=== PATIENT | male | born 1975 | race Caucasian/White ===

== ENCOUNTER 2016-08-26 07:45 | Emergency (ER) | payer BC ==
--- NOTE | 2016-08-26 08:14 | ED ---
Throat Pain/Nasal Congestion - HPI Summary HPI Summary: 40yo male presents with URI symptoms a few days ago which have been resolving, however he woke up with a diffuse rash this am. Not particularly itchy, but not at all painful. No fever or chills. No changes in soaps/detergents. No changes in food or water source. No recent travel. He does work at the [employer] at [place], but is unaware of any exposures. No known allergies. He generally feels well. He does take lisinopril for HTN, but has for many years without any adverse affect. He also takes ambien for sleep, but this is an unchanged medication. He is not taking any OTC medication. He denies any abdominal pain. Denies any difficulty breathing, swallowing. Denies wheezing, but does have a resolving cough. - History of Current Complaint Chief Complaint: EDRashSkinAbscess Time Seen by Provider: 08/26/16 07:59 - Allergies/Home Medications Allergies/Adverse Reactions: Allergies Allergy/AdvReac Type Severity Reaction Status Date / Time Bee Venom Allergy Unknown Unknown Verified 08/26/16 07:51 Reaction Details Home Medications: Home Medications Lisinopril TAB* [Prinivil TAB 10 MG*] 10 mg PO DAILY 08/26/16 [History Confirmed 08/26/16] PMH/Surg Hx/FS Hx/Imm Hx Cardiovascular History: Reports: Hx Hypercholesterolemia, Hx Hypertension Respiratory History: Reports: Hx Sleep Apnea Neurological History: Reports: Hx Headaches, Other Neuro Impairments/Disorders - neck pressure on & off since 2011 Infectious Disease History: No Infectious Disease History: Denies: Traveled Outside the [place] in Last 30 Days - Family History Known Family History: Positive: Hypertension, Other - mother stroke at 65yo D - Social History Occupation: Employed Full-time - [place] [employer] Alcohol Use: Occasionally Substance Use Type: Reports: None Hx Tobacco Use: No Review of Systems Positive: Cough Positive: Rash All Other Systems Reviewed And Are Negative: Yes Physical Exam - Summary Physical Exam Summary: GENERAL: Well appearing, No acute distress, well nourished. HEENT: Head atraumatic/normocephalic, EOMI/BJ, conjunctiva clear NECK: Supple with normal range of motion during conversation. No lymphadenopathy CARDIAC: RRR without murmur, rub or gallop LUNGS: Clear to auscultation without wheezing, rales or rhonchi. Normal respiratory effort. Breath sounds are symmetrical and equal. ABDOMEN: Abdomen is soft and non-tender. No organomegaly MUSCULOSKELETAL: Moves all extremities well. There is no peripheral edema. SKIN: Warm and dry, skin color reflects adequate perfusion. Diffuse erythematous rash sparing his back, palms, soles. Erythematous, blanchable. Slightly raised with sections of wheels c/w urticaria more prominent along belt line and flexor surfaces. Not violaceous. NEUROLOGICAL: Patient is alert and appropriate. Cranial nerves are grossly intact. PSYCHIATRIC: Appropriate affect. Vital Signs On Initial Exam: Initial Vitals Temp Pulse Resp BP Pulse Ox 97.5 F 89 16 140/99 100 08/26/16 07:46 08/26/16 07:46 08/26/16 07:46 08/26/16 07:46 08/26/16 07:46 Diagnostics - Vital Signs Vital Signs Temp Pulse Resp BP Pulse Ox 08/26/16 07:46 97.5 F 89 16 140/99 100 - Laboratory Lab Statement: Any lab studies that have been ordered have been reviewed, and results considered in the medical decision making process. EENT Course/Dx - Course Assessment/Plan: 40yo male presents with diffuse rash and resolving URI. Patient is without fever. No known exposures to different medications and/or foods. Exam is c/w urticaria, however patient does not have a prominent pruritic component. Discussed with Dr. Lane. Will start patient on antihistimine, but will avoid prednisone at this time as he has a resolving URI , and his symptoms are mild. Discussed that urticaria can be from multiple reasons and advised f/u with PCP. To return here with any problems, concerns or new/worsening symptoms. Patient voiced understanding. - Diagnoses Provider Diagnoses: Urticaria - Provider Notifications Discussed Care of Patient with: Dr. Lane Discharge - Discharge Plan Condition: Good Disposition: HOME Prescriptions: diPHENhydraMINE PO* [Benadryl PO*] 50 mg PO TID PRN #20 cap PRN Reason: Rash Patient Education Materials: Diphenhydramine (By mouth), Urticaria (ED) Referrals: Fazal Sánchez MD [Primary Care Provider] - 1 Day Additional Instructions: Your rash appears to be urticaria. Many different things can cause urticaria. This episode may have been caused by your recent upper respiratory infection. Please take medication as needed for your rash. You may need further evaluation as discussed. Please follow up with your PCP. Please return here with any new or worsening symptoms. Please return with any problems or concerns.
[2016-08-26 08:49] VITALS: BP 120/81
== END 2016-08-26 08:47 | disposition home or self-care (01) ==
LOC: ED 07:45
DX: L50.9 Urticaria, unspecified (principal); J06.9 Acute upper respiratory infection, unspecified; R05 Cough; R21 Rash and other nonspecific skin eruption
CPT/HCPCS: 99282